=== PATIENT | female | born 1945 | race Caucasian/White ===

== ENCOUNTER → 2021-07-30 | Outpatient (CLI) | payer MEDICARE | END | disposition home or self-care (01) | LOC: RAH 12:43 | PROVIDERS: ATTEND Physician Assistant | DX: M48.061 Spinal stenosis, lumbar region without neurogenic claudication (principal); M43.5X6 Other recurrent vertebral dislocation, lumbar region; M53.3 Sacrococcygeal disorders, not elsewhere classified; Z98.890 Other specified postprocedural states | CPT/HCPCS: 72114 ==

== ENCOUNTER → 2025-03-01 | Outpatient (CLI) | payer MEDICARE ==
--- NOTE | 2025-03-02 15:50 | HMCIMG ---
EXAM: MR Lumbar Spine Without Intravenous Contrast. CLINICAL HISTORY: Lumbar spinal canal stenosis and neurogenic claudication. TECHNIQUE: Magnetic resonance images of the lumbar spine in multiple planes. CONTRAST: None. COMPARISON: Prior lumbar spine radiograph dated July 30, 2021. FINDINGS: For this examination, spinal levels were labeled assuming five [id number], lumbar-type vertebrae, with the inferior labeled L5. No acute fracture. Normal lordotic curvature. Normal vertebral body height and marrow signal intensity. Multilevel disc desiccation and degenerative reduction in disc space at L2-L3, L3-L4, and L4-L5 levels with a degenerative anterior osteophyte. Multilevel degenerative facet arthropathy from L1-L2, through L5-S1 level, is left more than right. Conus medullaris terminates at the T12-L1 level. No abnormal epidural masses. The surrounding soft tissues are unremarkable. Individual spinal levels are described as follows: T12-L1: No disc bulge or herniation. No neural foraminal, lateral recess, or spinal canal stenosis. L1-L2: No disc bulge or herniation. No neural foraminal, lateral recess, or spinal canal stenosis. L2-L3: Mild disc desiccation. 4 mm left paracentral disc bulge. Mild bilateral facet arthropathy. Mild narrowing of the left lateral recess. No significant lateral recess, neural foraminal narrowing, or nerve impingement. No evidence of spinal canal stenosis. L3-L4: Degenerative reduction in disc space. Broad-based circumferential 4 mm disc osteophyte complex bulge. Moderate bilateral facet arthropathy and ligamentum flavum hypertrophy. Moderate narrowing of the bilateral neural foramina. Abutment of bilateral exiting L3 nerve root. No significant lateral recess or spinal canal stenosis. L4-L5: Probable post-laminectomy status. Degenerative reduction in disc space. Minimal retrolisthesis of L4 over L5 (3 mm. Posterior orthopedic fixation. Moderate bilateral facet arthropathy. Moderate narrowing of the right neural foramina. Mild narrowing of the left neural foramina. No significant lateral recess or spinal canal stenosis. L5-S1: Mild disc desiccation with broad-based circumferential 2.5 mm disc bulge and bilateral facet arthropathy, left more than right. Mild narrowing of the bilateral neural foramina, right more than left. Abutment of the left exiting L5 nerve root. No significant lateral recess or spinal canal stenosis. IMPRESSION: No evidence of acute fracture or subluxation. Normal vertebral body height and marrow signal intensity. Probable post-laminectomy status of L4-L5 level posterior orthopedic fixation. Multilevel disc desiccation and degenerative reduction in disc space at L2-L3, L3-L4, and L4-L5 levels with a degenerative anterior osteophyte. Multilevel degenerative facet arthropathy from L1-L2, through L5-S1 level, is left more than right. Moderate degenerative changes in the lumbar spine as described above, most prominent at the L3-L4 level. /[place]
== END | disposition home or self-care (01) ==
LOC: RAH 08:21
PROVIDERS: ATTEND Physical Medicine & Rehabilitation
DX: M47.817 Spondylosis without myelopathy or radiculopathy, lumbosacral region (principal); M48.07 Spinal stenosis, lumbosacral region; M46.1 Sacroiliitis, not elsewhere classified; M25.78 Osteophyte, vertebrae; M51.379 Other intervertebral disc degeneration, lumbosacral region without mention of lumbar back pain or lower extremity pain; M43.16 Spondylolisthesis, lumbar region; Z98.1 Arthrodesis status
CPT/HCPCS: 72148